=== PATIENT | female | born 1985 | race Caucasian/White ===

== ENCOUNTER → 2016-06-23 | Outpatient (CLI) | payer BC ==
[2016-06-23 11:14] LABS: Follicle Stimulating Hormone 5.1 mIU/mL
== END | disposition home or self-care (01) ==
LOC: LABWHC1 08:24
PROVIDERS: ATTEND Internal Medicine Endocrinology, Diabetes & Metabolism
DX: E28.2 Polycystic ovarian syndrome (principal); N94.6 Dysmenorrhea, unspecified
CPT/HCPCS: 36415; 82533; 82947; 83001; 83002; 83498; 83525; 84146; 84403; 84443

== ENCOUNTER 2023-09-26 19:04 | Emergency (ER) | payer BC, OTHER ==
--- NOTE | 2023-09-26 19:29 | ED ---
General Adult HPI - General Stated complaint: post surgical irritation Time Seen by Provider: 09/26/23 19:26 Source: patient Mode of arrival: ambulatory Limitations: no limitations - History of Present Illness Initial comments: 38-year-old female presenting with chief complaint of skin irritation. Patient had a brachioplasty and thoracoplasty performed in [place] 1 week ago. She states that today she was having extreme itching along her incisions bilaterally. There is also some redness surrounding her incisions bilaterally. She is currently on antibiotics prescribed by her surgeon. She does have a video call scheduled for tomorrow. She does admit to some clear discharge, no pus or purulent discharge. She admits to her regular postop soreness, no increase in pain or change in pain. No fevers. No difficulty breathing. - Related Data Allergies Allergy/AdvReac Type Severity Reaction Status Date / Time No Known Allergies Allergy Verified 09/26/23 19:30 Review of Systems ROS Statement: Those systems with pertinent positive or pertinent negative responses have been documented in the HPI. ROS Other: All systems not noted in ROS Statement are negative. General Exam - General Exam Comments Initial Comments: Visual Physical Exam Vital signs reviewed General: Well-appearing, nontoxic, no acute distress. Head: Normocephalic, atraumatic Eyes: PERRLA, EOMI ENT: Airway patent Chest: Nonlabored breathing Skin: No visual rash, normal skin tone Neuro: Alert and oriented 3 Musculoskeletal: No gross abnormalities General appearance: alert, in no apparent distress Head exam: Present: atraumatic, normocephalic Eye exam: Present: normal appearance, EOMI Neck exam: Present: normal inspection. Absent: meningismus Respiratory exam: Absent: respiratory distress Cardiovascular Exam: Present: regular rate Neurological exam: Present: alert, oriented X3 Psychiatric exam: Present: normal affect, normal mood Skin exam: Present: other (Patient has healing incisions along the bilateral arms that continue to the sides of the chest. There is some redness surrounding the incisions bilaterally. There is some clear discharge. No purulent discharge. No induration.) Course Vital Signs 09/26/23 09/27/23 19:23 02:06 Temperature 98.3 F 98.0 F Pulse Rate 90 78 Respiratory 18 18 Rate Blood Pressure 123/92 135/77 O2 Sat by Pulse 97 99 Oximetry Medical Decision Making - Medical Decision Making Was pt. sent in by a medical professional or institution (JOSEPHINE Carver, COIN MACHINE SERVICE REPAIRER, urgent care, hospital, or prison...) When possible be specific @ -No Did you speak to anyone other than the patient for history (EMS, parent, family, police, friend...)? What history was obtained from this source @ -No Did you review nursing and triage notes (agree or disagree)? Why? @ -I reviewed and agree with nursing and triage notes Were old charts reviewed (outside hosp., previous admission, EMS record, old EKG, old radiological studies, urgent care reports/EKG's, prison records)? Report findings @ -No old charts were reviewed Differential Diagnosis (chest pain, altered mental status, abdominal pain women, abdominal pain men, vaginal bleeding, weakness, fever, dyspnea, syncope, headache, dizziness, GI bleed, back pain, seizure, CVA, palpatations, mental health, musculoskeletal)? @ -Differential includes allergic reaction, infection, this is not an all- inclusive list EKG interpreted by me (3pts min.). @ -As above X-rays interpreted by me (1pt min.). @ -None done CT interpreted by me (1pt min.). @ -None done U/S interpreted by me (1pt. min.). @ -None done What testing was considered but not performed or refused? (CT, X-rays, U/S, labs)? Why? @ -None What meds were considered but not given or refused? Why? @ -None Did you discuss the management of the patient with other professionals (professionals i.e. JOSEPHINE Carver, COIN MACHINE SERVICE REPAIRER, lab, RT, psych nurse, hospital social worker, echo vascular technologist, teacher, air antisubmarine officer, case planner)? Give summary @ -No Was smoking cessation discussed for >3mins.? @ -No Was critical care preformed (if so, how long)? @ -No Were there social determinants of health that impacted care today? How? (Homelessness, low income, unemployed, alcoholism, drug addiction, transportation, low edu. Level, literacy, decrease access to med. care, group home, rehab)? @ -No Was there de-escalation of care discussed even if they declined (Discuss DNR or withdrawal of care, Hospice)? DNR status @ -No What co-morbidities impacted this encounter? (DM, HTN, Smoking, COPD, CAD, Cancer, CVA, ARF, Chemo, Hep., AIDS, mental health diagnosis, sleep apnea, morbid obesity)? @ -None Was patient admitted / discharged? Hospital course, mention meds given and route, prescriptions, significant lab abnormalities, going to OR and other pertinent info. @ -38-year-old female presenting with chief complaint of itching along her healing incisions. Recent brachioplasty and thoracoplasty 1 week ago by a surgeon in [place]. She is having intense itching. There is also some redness surrounding her incisions. She is having no purulent drainage, there is no induration on exam, she is having no increase or change in her pain. Patient is currently on antibiotics prescribed by her surgeon, has been on these for about 1 day. Patient was given Benadryl, Decadron, and Pepcid. She reports improvement in her itching. Her wounds were redressed. She has a video call scheduled with her surgeon for tomorrow. Discharged home. Follow-up with PCP. Report back to ER with any new or worsening symptoms. Discussed return parameters and answered all questions. Patient conveyed verbal understanding and agreed to the plan. I discussed this case in detail with my attending Dr. Robbins Undiagnosed new problem with uncertain prognosis? @ -No Drug Therapy requiring intensive monitoring for toxicity (Heparin, Nitro, Insulin, Cardizem)? @ -No Were any procedures done? @ -No Diagnosis/symptom? @ -Allergic reaction Acute, or Chronic, or Acute on Chronic? @ -Acute Uncomplicated (without systemic symptoms) or Complicated (systemic symptoms)? @ -Uncomplicated Side effects of treatment? @ -No Exacerbation, Progression, or Severe Exacerbation? @ -No Poses a threat to life or bodily function? How? (Chest pain, [place], [place], pneumonia, PE, COPD, DKA, ARF, appy, cholecystitis, CVA, Diverticulitis, Homicidal, Suicidal, threat to staff... and all critical care pts) @ -Low likelihood Disposition Clinical Impression: Post-operative state, Allergic reaction Disposition: HOME SELF-CARE Condition: Fair Additional Instructions: Follow-up with your surgeon. Report back to ER with any new or worsening symptoms. Continue taking Benadryl as needed and continue taking your antibiotics as prescribed. Is patient prescribed a controlled substance at d/c from ED?: No Referrals: Jai Whitehead DO [Primary Care Provider] - 1-2 days Time of Disposition: 01:38
[2023-09-26 19:30] VITALS: RESP 18
[2023-09-27] MEDS: HYDROcodone/APAP 7.5-325MG 1 EACH TAB PO ONE (00:39)
[2023-09-27] MEDS: FAMOTIDINE 20 MG TAB PO STA (00:39)
[2023-09-27] MEDS: diphenhydrAMINE 50 MG/ML 1 ML VIAL IM STA (00:40)
[2023-09-27] MEDS: DEXAMETHASONE SOD PHOSPHATE 10 MG/ML 1 ML VIAL IM STA (00:40)
[2023-09-27 02:17] VITALS: BP 135/77; PULSE 78; TEMP 98
== END 2023-09-27 02:08 | disposition home or self-care (01) ==
LOC: EC 19:04
DX: L76.82 Other postprocedural complications of skin and subcutaneous tissue (principal); T78.40XA Allergy, unspecified, initial encounter
CPT/HCPCS: 99283; 96372 ×2; J1200; J1100

== ENCOUNTER 2023-12-22 18:59 | Emergency (ER) | payer BC ==
[2023-12-22 19:36] VITALS: BP 129/80; PULSE 100; RESP 18; TEMP 98.4
--- NOTE | 2023-12-22 20:00 | ED ---
General Adult HPI - General Chief complaint: Recheck/Abnormal Lab/Rx Stated complaint: post op comp Time Seen by Provider: 12/22/23 19:47 Source: patient Mode of arrival: ambulatory Limitations: no limitations - History of Present Illness Initial comments: 38-year-old female presents after having lower body lift procedure done in [place] on December 04. She reports that her right upper thigh NATASHA drain was scheduled to be removed tomorrow but the stitch broke and the drain is pulling out on its own. No fever. No other complaints. She states the output was approximately 10 cc/day. - Related Data Allergies Allergy/AdvReac Type Severity Reaction Status Date / Time derma shultz Allergy Swelling Uncoded 12/22/23 19:37 Review of Systems ROS Statement: Those systems with pertinent positive or pertinent negative responses have been documented in the HPI. ROS Other: All systems not noted in ROS Statement are negative. Past Medical History Additional Past Medical History / Comment(s): lymphedema History of Any Multi-Drug Resistant Organisms: None Reported Additional Past Surgical History / Comment(s): lower body life Past Psychological History: No Psychological Hx Reported, Anxiety, Depression Smoking Status: Never smoker Past Alcohol Use History: Occasional Past Drug Use History: None Reported General Exam Limitations: no limitations General appearance: alert, in no apparent distress Head exam: Present: atraumatic, normocephalic Eye exam: Present: normal appearance, PERRL Respiratory exam: Absent: respiratory distress Cardiovascular Exam: Present: regular rate, normal rhythm Extremities exam: Present: other (Right upper thigh incision appears well-healed without erythema. The drain is nearly completely removed on its own.) Course Vital Signs 12/22/23 19:32 Temperature 98.4 F Pulse Rate 100 Respiratory 18 Rate Blood Pressure 129/80 O2 Sat by Pulse 97 Oximetry Medical Decision Making - Medical Decision Making Was pt. sent in by a medical professional or institution (, PA, ACUTE CARE OCCUPATIONAL THERAPIST, urgent care, hospital, or halfway...) When possible be specific @ -No Did you speak to anyone other than the patient for history (EMS, parent, family, police, friend...)? What history was obtained from this source @ -No Did you review nursing and triage notes (agree or disagree)? Why? @ -I reviewed and agree with nursing and triage notes Were old charts reviewed (outside hosp., previous admission, EMS record, old EKG, old radiological studies, urgent care reports/EKG's, halfway records)? Report findings @ -No old charts were reviewed Differential Diagnosis NATASHA drain removal EKG interpreted by me (3pts min.). @ -As above X-rays interpreted by me (1pt min.). @ -None done CT interpreted by me (1pt min.). @ -None done U/S interpreted by me (1pt. min.). @ -None done What testing was considered but not performed or refused? (CT, X-rays, U/S, labs)? Why? @ -None What meds were considered but not given or refused? Why? @ -None Did you discuss the management of the patient with other professionals (professionals i.e. , PA, ACUTE CARE OCCUPATIONAL THERAPIST, lab, RT, psych nurse, social work instructor, registration rep, teacher, artillery officer, telephonic nurse case manager)? Give summary @ -No Was smoking cessation discussed for >3mins.? @ -No Was critical care preformed (if so, how long)? @ -No Were there social determinants of health that impacted care today? How? (Homelessness, low income, unemployed, alcoholism, drug addiction, transportation, low edu. Level, literacy, decrease access to med. care, [facility]ci, rehab)? @ -No Was there de-escalation of care discussed even if they declined (Discuss DNR or withdrawal of care, Hospice)? DNR status @ -No What co-morbidities impacted this encounter? (DM, HTN, Smoking, COPD, CAD, Cancer, CVA, ARF, Chemo, Hep., AIDS, mental health diagnosis, sleep apnea, morbid obesity)? @ -None Was patient admitted / discharged? Hospital course, mention meds given and route, prescriptions, significant lab abnormalities, going to OR and other pertinent info. @ -38-year-old female, NATASHA drain needing to be removed, scheduled for removal and has very low daily output. The drain is nearly completely removed on its own. I did pull an additional 5 or 10 cm to remove it completely. Patient has second drain that will need to be removed as well and her primary care provider will not remove this drain and her surgeon is in [place]. Patient will return to the emergency department when the output of this drain has decreased for removal. Undiagnosed new problem with uncertain prognosis? @ -No Drug Therapy requiring intensive monitoring for toxicity (Heparin, Nitro, Insulin, Cardizem)? @ -No Were any procedures done? @ -No Diagnosis/symptom? @ -NATASHA drain removal Acute, or Chronic, or Acute on Chronic? @ -acute Uncomplicated (without systemic symptoms) or Complicated (systemic symptoms)? @ -Default Side effects of treatment? @ -No Exacerbation, Progression, or Severe Exacerbation? @ -No Poses a threat to life or bodily function? How? (Chest pain, [place], [place], pneumonia, PE, COPD, DKA, ARF, appy, cholecystitis, CVA, Diverticulitis, Homicidal, Suicidal, threat to staff... and all critical care pts) @ -No Disposition Clinical Impression: NATASHA drain, broken Disposition: HOME SELF-CARE Condition: Fair Instructions (If sedation given, give patient instructions[facility] Is patient prescribed a controlled substance at d/c from ED?: No Referrals: Jai Whitehead DO [Primary Care Provider] - 1-2 days Time of Disposition: 20:00
== END 2023-12-22 20:49 | disposition home or self-care (01) ==
LOC: EC 18:59
CPT/HCPCS: 99283

== ENCOUNTER 2023-12-27 20:08 | Emergency (ER) | payer BC ==
[2023-12-27 20:21] VITALS: BP 114/77; PULSE 73; RESP 18; TEMP 98.1
--- NOTE | 2023-12-27 20:22 | ED ---
General Adult HPI - General Stated complaint: post-op comp, L hip Time Seen by Provider: 12/27/23 20:22 Source: patient Mode of arrival: ambulatory Limitations: no limitations - History of Present Illness Initial comments: 38-year-old female who had a lower body lift on 12/04 in [place] presenting with a complication of her left-sided drain. She states that the suture broke and her body is pushing out the drain on its own. It has been pushed out about 6 inches, she was told that there is about a foot length of drain in there. The suction has decreased because of this. Patient is averaging about 35 mL/day. She is having no purulent discharge. No fevers. No erythema. She was here recently and have the right sided drain removed. - Related Data Allergies Allergy/AdvReac Type Severity Reaction Status Date / Time derma shultz Allergy Swelling Uncoded 12/27/23 20:18 Review of Systems ROS Statement: Those systems with pertinent positive or pertinent negative responses have been documented in the HPI. ROS Other: All systems not noted in ROS Statement are negative. Past Medical History Additional Past Medical History / Comment(s): lymphedema History of Any Multi-Drug Resistant Organisms: None Reported Additional Past Surgical History / Comment(s): lower body life Past Psychological History: No Psychological Hx Reported, Anxiety, Depression Smoking Status: Never smoker Past Alcohol Use History: Occasional Past Drug Use History: None Reported General Exam - General Exam Comments Initial Comments: Visual Physical Exam Vital signs reviewed General: Well-appearing, nontoxic, no acute distress. Head: Normocephalic, atraumatic Eyes: PERRLA, EOMI ENT: Airway patent Chest: Nonlabored breathing Skin: No visual rash, normal skin tone Neuro: Alert and oriented 3 Musculoskeletal: No gross abnormalities Limitations: no limitations General appearance: alert, in no apparent distress Head exam: Present: atraumatic, normocephalic Eye exam: Present: normal appearance, EOMI Neck exam: Present: normal inspection. Absent: meningismus Respiratory exam: Absent: respiratory distress Cardiovascular Exam: Present: regular rate Neurological exam: Present: alert, oriented X3 Psychiatric exam: Present: normal affect, normal mood Skin exam: Present: other (Left-sided drain is in place near the left hip. The suture has snapped and is not secured, patient has attempted to secure it using dental floss.) Course Vital Signs 12/27/23 20:18 Temperature 98.1 F Pulse Rate 73 Respiratory 18 Rate Blood Pressure 114/77 O2 Sat by Pulse 99 Oximetry Medical Decision Making - Medical Decision Making Was pt. sent in by a medical professional or institution (JOSEPHINE Carver, [facility], urgent care, hospital, or alf...) When possible be specific @ -No Did you speak to anyone other than the patient for history (EMS, parent, family, police, friend...)? What history was obtained from this source @ -No Did you review nursing and triage notes (agree or disagree)? Why? @ -I reviewed and agree with nursing and triage notes Were old charts reviewed (outside hosp., previous admission, EMS record, old EKG, old radiological studies, urgent care reports/EKG's, alf records)? Report findings @ -No old charts were reviewed Differential Diagnosis (chest pain, altered mental status, abdominal pain women, abdominal pain men, vaginal bleeding, weakness, fever, dyspnea, syncope, headache, dizziness, GI bleed, back pain, seizure, CVA, palpatations, mental health, musculoskeletal)? @ -Not applicable EKG interpreted by me (3pts min.). @ -As above X-rays interpreted by me (1pt min.). @ -None done CT interpreted by me (1pt min.). @ -None done U/S interpreted by me (1pt. min.). @ -None done What testing was considered but not performed or refused? (CT, X-rays, U/S, labs)? Why? @ -None What meds were considered but not given or refused? Why? @ -None Did you discuss the management of the patient with other professionals (professionals i.e. JOSEPHINE Carver, [facility], lab, RT, psych nurse, social group worker, caddymaster, teacher, banking services officer, business case analyst)? Give summary @ -No Was smoking cessation discussed for >3mins.? @ -No Was critical care preformed (if so, how long)? @ -No Were there social determinants of health that impacted care today? How? (Homelessness, low income, unemployed, alcoholism, drug addiction, transportation, low edu. Level, literacy, decrease access to med. care, correction, rehab)? @ -No Was there de-escalation of care discussed even if they declined (Discuss DNR or withdrawal of care, Hospice)? DNR status @ -No What co-morbidities impacted this encounter? (DM, HTN, Smoking, COPD, CAD, Cancer, CVA, ARF, Chemo, Hep., AIDS, mental health diagnosis, sleep apnea, morbid obesity)? @ -None Was patient admitted / discharged? Hospital course, mention meds given and route, prescriptions, significant lab abnormalities, going to OR and other pertinent info. @ -38-year-old female presenting with chief complaint of complication with her surgical drain. She had a lower body lift performed in [place] in November. The suture to her drains snapped and her body has been pushing the drain out. On examination there are no cellulitic changes. Considering that we do not have direct instruction from the surgeon, the drain is resutured back to the skin and patient is instructed to follow-up with her surgeon. Discharged. Follow-up with PCP. Report back to ER with any new or worsening symptoms. Discussed return parameters and answered all questions. Patient conveyed verbal understanding and agreed to the plan. I discussed this case in detail with my attending Dr. Robbins Undiagnosed new problem with uncertain prognosis? @ -No Drug Therapy requiring intensive monitoring for toxicity (Heparin, Nitro, Insulin, Cardizem)? @ -No Were any procedures done? @ -Suture applied to secure drain Diagnosis/symptom? @ -Complication of NATASHA drain Acute, or Chronic, or Acute on Chronic? @ -Acute Uncomplicated (without systemic symptoms) or Complicated (systemic symptoms)? @ -Uncomplicated Side effects of treatment? @ -No Exacerbation, Progression, or Severe Exacerbation? @ -No Poses a threat to life or bodily function? How? (Chest pain, [place], [place], pneumonia, PE, COPD, DKA, ARF, appy, cholecystitis, CVA, Diverticulitis, Homicidal, Suicidal, threat to staff... and all critical care pts) @ -No Disposition Clinical Impression: NATASHA drain, broken Disposition: HOME SELF-CARE Condition: Good Additional Instructions: Follow-up with your surgeon. Report back to ER with any new or worsening symptoms. Is patient prescribed a controlled substance at d/c from ED?: No Referrals: Jai Whitehead DO [Primary Care Provider] - 1-2 days Time of Disposition: 22:13
== END 2023-12-28 01:30 | disposition home or self-care (01) ==
LOC: EC 20:08
DX: Z48.03 Encounter for change or removal of drains (principal)

== ENCOUNTER 2023-12-28 13:12 | Emergency (ER) | payer BC ==
--- NOTE | 2023-12-28 14:04 | ED ---
Recheck HPI - General Chief Complaint: Recheck/Abnormal Lab/Rx Stated Complaint: Post-op comp Time Seen by Provider: 12/28/23 13:30 Source: patient, RN notes reviewed Mode of arrival: ambulatory Limitations: no limitations - History of Present Illness Initial Comments: 38-year-old female presents emergency for chief complaint of postoperative consult. Patient states she had a lower abdominal-plasty completed few weeks ago in [place] and presents for removal of surgical drain as advised by her surgeon. Patient was evaluated on 12/26 the emergency department where a additional suture was placed in the surgical drain. Patient spoke with her surgeon recommended she report back to emergency department for removal of the drain. Denies fevers, chills, nausea, vomiting, abdominal pain. - Related Data Allergies Allergy/AdvReac Type Severity Reaction Status Date / Time derma shultz Allergy Swelling Uncoded 12/27/23 20:18 Review of Systems ROS Statement: Those systems with pertinent positive or pertinent negative responses have been documented in the HPI. ROS Other: All systems not noted in ROS Statement are negative. Past Medical History Additional Past Medical History / Comment(s): lymphedema History of Any Multi-Drug Resistant Organisms: None Reported Past Surgical History: Appendectomy, Bariatric Surgery Additional Past Surgical History / Comment(s): lower body life Past Psychological History: No Psychological Hx Reported, Anxiety, Depression Smoking Status: Never smoker Past Alcohol Use History: Occasional Past Drug Use History: None Reported General Exam - General Exam Comments Initial Comments: Visual Physical Exam Vital signs reviewed General: Well-appearing, nontoxic, no acute distress. Head: Normocephalic, atraumatic Eyes: PERRLA, EOMI ENT: Airway patent Chest: Nonlabored breathing Skin: No visual rash, normal skin tone Neuro: Alert and oriented 3 Musculoskeletal: No gross abnormalities Limitations: no limitations General appearance: alert, in no apparent distress ENT exam: Present: normal exam, mucous membranes moist Neck exam: Present: normal inspection. Absent: tenderness, meningismus, lymphadenopathy Respiratory exam: Present: normal lung sounds bilaterally. Absent: respiratory distress, wheezes, rales, rhonchi, stridor Cardiovascular Exam: Present: regular rate, normal rhythm, normal heart sounds. Absent: systolic murmur, diastolic murmur, rubs, gallop, clicks GI/Abdominal exam: Present: soft, normal bowel sounds, other (left lower abdoemn NATASHA drain, post surgical incision of the abdomen). Absent: distended, tenderness, guarding, rebound, rigid Extremities exam: Present: normal inspection, full ROM, normal capillary refill. Absent: tenderness, pedal edema, joint swelling, calf tenderness Skin exam: Present: warm, dry, intact, normal color. Absent: rash Course Vital Signs 12/28/23 13:42 Temperature 98.5 F Pulse Rate 110 H Respiratory 20 Rate Blood Pressure 119/68 O2 Sat by Pulse 97 Oximetry Medical Decision Making - Medical Decision Making Was pt. sent in by a medical professional or institution (, [facility], WEB [employer]ESS OPERATOR [employer], urgent care, hospital, or fpc...) When possible be specific @ -No Did you speak to anyone other than the patient for history (EMS, parent, family, police, friend...)? What history was obtained from this source @ -No Did you review nursing and triage notes (agree or disagree)? Why? @ -I reviewed and agree with nursing and triage notes Were old charts reviewed (outside hosp., previous admission, EMS record, old EKG, old radiological studies, urgent care reports/EKG's, fpc records)? Report findings @ -No old charts were reviewed Differential Diagnosis (chest pain, altered mental status, abdominal pain women, abdominal pain men, vaginal bleeding, weakness, fever, dyspnea, syncope, headache, dizziness, GI bleed, back pain, seizure, CVA, palpatations, mental health, musculoskeletal)? @ -encounter for surgical drain removal EKG interpreted by me (3pts min.). @ -None X-rays interpreted by me (1pt min.). @ -None done CT interpreted by me (1pt min.). @ -None done U/S interpreted by me (1pt. min.). @ -None done What testing was considered but not performed or refused? (CT, X-rays, U/S, labs)? Why? @ -None What meds were considered but not given or refused? Why? @ -None Did you discuss the management of the patient with other professionals (professionals i.e. JOSEPHINE Carver, WE[employer] OPERATOR [employer], lab, RT, psych nurse, social media specialist, flotation tank operator, teacher, environmental compliance officer, correctional counselor/case manager)? Give summary @ -No Was smoking cessation discussed for >3mins.? @ -No Was critical care preformed (if so, how long)? @ -No Were there social determinants of health that impacted care today? How? (Homelessness, low income, unemployed, alcoholism, drug addiction, transportation, low edu. Level, literacy, decrease access to med. care, [facility], rehab)? @ -No Was there de-escalation of care discussed even if they declined (Discuss DNR or withdrawal of care, Hospice)? DNR status @ -No What co-morbidities impacted this encounter? (DM, HTN, Smoking, COPD, CAD, Cancer, CVA, ARF, Chemo, Hep., AIDS, mental health diagnosis, sleep apnea, morbid obesity)? @ -None Was patient admitted / discharged? Hospital course, mention meds given and route, prescriptions, significant lab abnormalities, going to OR and other pertinent info. @ -Discharge. 38-year-old female with encounter for surgical drain removal. Surgical drain was removed with no signs of erythema, purulence or concern for infection. All questions answered at bedside strict return parameters memo the patient she is verbalized understanding. Discussed with Dr. Patel Undiagnosed new problem with uncertain prognosis? @ -No Drug Therapy requiring intensive monitoring for toxicity (Heparin, Nitro, Insulin, Cardizem)? @ -No Were any procedures done? @ -No Diagnosis/symptom? @ -encounter for surgical drain removal Acute, or Chronic, or Acute on Chronic? @ -Acute Uncomplicated (without systemic symptoms) or Complicated (systemic symptoms)? @ -Uncomplicated Side effects of treatment? @ -No Exacerbation, Progression, or Severe Exacerbation? @ -No Poses a threat to life or bodily function? How? (Chest pain, [place], NC, pneumonia, PE, COPD, DKA, ARF, appy, cholecystitis, CVA, Diverticulitis, Homicidal, Suicidal, threat to staff... and all critical care pts) @ -No Disposition Clinical Impression: Encounter for change or removal of surgical wound dressing Disposition: HOME SELF-CARE Condition: Good Instructions (If sedation given, give patient instructions): [facility] (ED) Additional Instructions: Return to the emergency department for any new or worsening symptoms. Is patient prescribed a controlled substance at d/c from ED?: No Referrals: Jai Whitehead DO [Primary Care Provider] - 1-2 days Time of Disposition: 14:53
[2023-12-28 15:14] VITALS: BP 108/69; PULSE 95; RESP 18; TEMP 98.1
== END 2023-12-28 15:15 | disposition home or self-care (01) ==
LOC: EC 13:12
DX: Z48.89 Encounter for other specified surgical aftercare
CPT/HCPCS: 99281